=== PATIENT | female | born 1930 | race Caucasian/White ===

== ENCOUNTER 2020-04-25 12:23 | Inpatient (IN) | payer OTHER, BC ==
[2020-04-25 15:16] LABS: EPI CELLS >36 /uL (0-25.1); HYALINE CASTS 14 /uL (0-3.1); URINE APPEARANCE CLOUDY; URINE BACTERIA 20 /uL (0-1359); URINE BILIRUBIN NEGATIVE (NEGATIVE); URINE COLOR YELLOW; URINE GLUCOSE (UA) NEGATIVE (NEGATIVE); URINE KETONE NEGATIVE (NEGATIVE); URINE LEUK ESTERASE 1+ (NEGATIVE); URINE NITRITE NEGATIVE (NEGATIVE); URINE PROTEIN 1+ (NEGATIVE); URINE RBC 8 /uL (0-23.9); URINE UROBILINOGEN 0.2 mg/dL (0.2-1.0); URINE WBC 17 /uL (0-25.8)
[2020-04-25 15:27] LABS: MCHC 30.8 g/dl (32.0-36.0); MEAN CELL VOLUME 61.8 fl (80-96); MEAN PLT VOLUME 9.2 fl (7.5-11.1); PLATELET COUNT 190 K/MM3 (134-434); WHITE BLOOD COUNT 7.1 K/mm3 (4.0-10.0)
[2020-04-25] MEDS ORDERED: SODIUM CHLORIDE 500 ML IV STA (15:29)
[2020-04-25 15:48] LABS: CHLORIDE 106 mmol/L (98-107); POTASSIUM 4.7 mmol/L (3.5-5.1); SODIUM 136 mmol/L (136-145)
[2020-04-25 15:51] LABS: ALBUMIN 2.8 g/dl (3.4-5.0); ANION GAP 7 MMOL/L (8-16); CO2 24 mmol/L (21-32); GLUCOSE,RANDOM 90 mg/dL (74-106)
[2020-04-25 15:54] LABS: SGOT/AST 32 U/L (15-37); SGPT/ALT 18 U/L (13-61)
[2020-04-25 15:56] LABS: BILIRUBIN,TOTAL 0.5 mg/dL (0.2-1); TOT PROT 6.6 g/dl (6.4-8.2)
[2020-04-25 15:57] LABS: ALK PHOS 104 U/L (45-117)
[2020-04-25 16:06] LABS: BLOOD UREA NITROGEN 28.3 mg/dL (7-18); CREATININE 1.1 mg/dL (0.55-1.3)
[2020-04-25] MEDS ORDERED: DIGOXIN 0.5 MG/2 ML AMPUL IVPUSH ONE (16:17)
[2020-04-25] MEDS ORDERED: DIGOXIN 0.5 MG/2 ML AMPUL ONE (16:36)
[2020-04-25] MEDS ORDERED: METOPROLOL TARTRATE 5 MG/5 ML VIAL IVPUSH ONE (20:44)
[2020-04-25] MEDS ORDERED: METOPROLOL TARTRATE 5 MG/5 ML VIAL ONE (21:09)
[2020-04-25 21:13] LABS: RETICULOCYTES 1.68 % (0.5-1.5)
[2020-04-25] MEDS ORDERED: CEFTRIAXONE 1 GM/50 ML BAG ONE (21:25)
[2020-04-25 21:26] LABS: IRON SERUM 13 ug/dL (50-175); TOTAL IRON BINDING CAPACITY 411 ug/dL (250-450)
[2020-04-25] MEDS: CEFTRIAXONE 1 GM in DEXTROSE 5%-WATER - 50 ML IVPB SCH (21:31)
[2020-04-25 22:06] LABS: HEMATOCRIT 23.8 % (32.4-45.2); HEMOGLOBIN 7.4 GM/dL (10.7-15.3); MCHC 31.1 g/dl (32.0-36.0); MEAN PLT VOLUME 9.1 fl (7.5-11.1); PLATELET COUNT 181 K/MM3 (134-434); RBC 3.22 M/mm3 (3.60-5.2); WHITE BLOOD COUNT 7.6 K/mm3 (4.0-10.0)
[2020-04-25] MEDS: D5-1/2NS+10 MEQ KCL - 10 MEQ/1,000 ML INFUS.BAG IV SCH (23:34)
[2020-04-26 08:29] LABS: INR 1.09 (0.83-1.09); PROTHROMBIN TIME (PATIENT) 13.2 SEC (9.7-13.0)
[2020-04-26 08:35] LABS: POTASSIUM 4.1 mmol/L (3.5-5.1)
[2020-04-26 08:44] LABS: CALCIUM 8.2 mg/dL (8.5-10.1)
[2020-04-26 08:45] LABS: ALBUMIN 2.7 g/dl (3.4-5.0); BLOOD UREA NITROGEN 28.9 mg/dL (7-18); MAGNESIUM 2.4 mg/dL (1.8-2.4)
[2020-04-26 08:48] LABS: PHOSPHOROUS 3.5 mg/dL (2.5-4.9)
[2020-04-26 08:49] LABS: BILIRUBIN,TOTAL 1.8 mg/dL (0.2-1); TOT PROT 6.4 g/dl (6.4-8.2)
[2020-04-26] MEDS ORDERED: cefTRIAXone SODIUM 1 GM VIAL ONE (08:53)
[2020-04-26] MEDS ORDERED: DEXTROSE 5%-WATER - 50 ML IVPB ONE (08:53)
[2020-04-26 09:41] LABS: HEMATOCRIT 20.5 % (32.4-45.2); MCH 23.3 pg (25.7-33.7); MCHC 33.5 g/dl (32.0-36.0); MEAN CELL VOLUME 69.7 fl (80-96); MEAN PLT VOLUME 9.3 fl (7.5-11.1); PLATELET COUNT 178 K/MM3 (134-434); RBC 2.94 M/mm3 (3.60-5.2); RDW 25.6 % (11.6-15.6); WHITE BLOOD COUNT 7.7 K/mm3 (4.0-10.0)
[2020-04-26] MEDS: CEFTRIAXONE 1 GM in DEXTROSE 5%-WATER - 50 ML IVPB SCH (10:20)
[2020-04-26 11:01] LABS: ANISOCYTOSIS 3+; MACROCYTOSIS 0; PLATELET ESTIMATE NORMAL; TARGET CELLS 2+
[2020-04-26 11:06] LABS: HEMOGLOBIN 6.9 GM/dL (10.7-15.3)
[2020-04-26] MEDS ORDERED: METOPROLOL TARTRATE 25 MG TABLET (FP) PO ONE (17:49)
[2020-04-26] MEDS: DOCUSATE SODIUM 100 MG CAPSULE (FP) PO SCH (21:35)
[2020-04-26] MEDS: FERROUS SO4 325 MG TABLET (FP) PO SCH (21:35)
[2020-04-26] MEDS ORDERED: METOPROLOL TARTRATE 25 MG TABLET (FP) PO SCH (22:00)
[2020-04-26 22:13] LABS: HEMOGLOBIN 8.2 GM/dL (10.7-15.3); MCH 24.2 pg (25.7-33.7); MCHC 32.9 g/dl (32.0-36.0); MEAN CELL VOLUME 73.5 fl (80-96); MEAN PLT VOLUME 9.1 fl (7.5-11.1); PLATELET COUNT 179 K/MM3 (134-434); WHITE BLOOD COUNT 8.2 K/mm3 (4.0-10.0)
[2020-04-27] MEDS: D5-1/2NS+10 MEQ KCL - 10 MEQ/1,000 ML INFUS.BAG IV SCH ×2 (00:24→21:22)
[2020-04-27] MEDS: DOCUSATE SODIUM 100 MG CAPSULE (FP) PO SCH ×3 (05:15→21:22)
[2020-04-27] MEDS ORDERED: METOPROLOL TARTRATE 25 MG TABLET (FP) PO ONE (06:28)
[2020-04-27] MEDS ORDERED: D5-1/2NS+10 MEQ KCL - 10 MEQ/1,000 ML INFUS.BAG IV SCH (08:12)
[2020-04-27 09:50] LABS: HEMATOCRIT 25.5 % (32.4-45.2); HEMOGLOBIN 8.4 GM/dL (10.7-15.3); MCHC 32.9 g/dl (32.0-36.0); MEAN PLT VOLUME 8.8 fl (7.5-11.1); PLATELET COUNT 179 K/MM3 (134-434); RBC 3.49 M/mm3 (3.60-5.2); RDW 25.9 % (11.6-15.6)
[2020-04-27] MEDS ORDERED: cefTRIAXone SODIUM 1 GM VIAL ONE (09:53)
[2020-04-27] MEDS ORDERED: DEXTROSE 5%-WATER - 50 ML IVPB ONE (09:53)
[2020-04-27 09:58] LABS: POTASSIUM 3.8 mmol/L (3.5-5.1)
[2020-04-27] MEDS ORDERED: CHOLECALCIFEROL (VIT D3) 1,000 UNIT (25 MCG) TABLET PO SCH (10:00)
[2020-04-27] MEDS ORDERED: CEFTRIAXONE 1 GM in DEXTROSE 5%-WATER - 50 ML IVPB SCH (10:00)
[2020-04-27] MEDS ORDERED: METOPROLOL TARTRATE 25 MG TABLET (FP) PO SCH (10:00)
[2020-04-27 10:01] LABS: ALBUMIN 2.6 g/dl (3.4-5.0); BLOOD UREA NITROGEN 27.6 mg/dL (7-18); CALCIUM 8.2 mg/dL (8.5-10.1); MAGNESIUM 2.4 mg/dL (1.8-2.4)
[2020-04-27] MEDS: FERROUS SO4 325 MG TABLET (FP) PO SCH ×2 (10:02→21:22)
[2020-04-27 10:04] LABS: CREATININE 0.9 mg/dL (0.55-1.3)
[2020-04-27 10:05] LABS: PHOSPHOROUS 2.7 mg/dL (2.5-4.9)
[2020-04-27 10:06] LABS: BILIRUBIN,TOTAL 1.9 mg/dL (0.2-1); TOT PROT 6.6 g/dl (6.4-8.2)
[2020-04-27 12:30] LABS: ANISOCYTOSIS 1+; MACROCYTOSIS 0; PLATELET ESTIMATE NORMAL
[2020-04-27 12:55] VITALS: BMI 17.3
[2020-04-27] MEDS ORDERED: LISINOPRIL 5 MG TABLET PO ONE (13:31)
[2020-04-27] MEDS ORDERED: PROPOFOL 20 ML ONE (16:43)
[2020-04-27] MEDS ORDERED: SUCCINYLCHOLINE CHLORIDE 200 MG/10 ML SYRINGE ONE (16:43)
[2020-04-27] MEDS ORDERED: DESFLURANE GAS 240 ML BOTTLE IH ONE (16:45)
[2020-04-27] MEDS ORDERED: TRANEXAMIC ACID 1000 MG/10 ML VIAL ONE (17:36)
[2020-04-27] MEDS ORDERED: ONDANSETRON 4 MG/2 ML VIAL IVPUSH PRN ×2 (17:40→18:48)
[2020-04-27] MEDS ORDERED: PROMETHAZINE HCL 25 MG/1 ML VIAL IVPUSH PRN ×2 (17:40→18:48)
[2020-04-27] MEDS ORDERED: oxyCODONE HCL 5 MG TABLET PO PRN ×4 (17:40→18:48)
[2020-04-27] MEDS ORDERED: ACETAMINOPHEN 325 MG TABLET (FP) PO PRN (18:29)
[2020-04-27] MEDS ORDERED: morphine SULFATE 4 MG/ML VIAL IM PRN ×2 (18:29→18:48)
[2020-04-27 19:38] LABS: HEMATOCRIT 23.9 % (32.4-45.2); HEMOGLOBIN 7.6 GM/dL (10.7-15.3); MCH 23.8 pg (25.7-33.7); MCHC 31.9 g/dl (32.0-36.0); MEAN CELL VOLUME 74.5 fl (80-96); MEAN PLT VOLUME 9.1 fl (7.5-11.1); PLATELET COUNT 161 K/MM3 (134-434); RBC 3.21 M/mm3 (3.60-5.2); WHITE BLOOD COUNT 6.7 K/mm3 (4.0-10.0)
[2020-04-28] MEDS ORDERED: ceFAZolin SODIUM 1 GM VIAL ONE ×2 (01:05→09:39)
[2020-04-28] MEDS ORDERED: DEXTROSE 5%-WATER - 50 ML IVPB ONE ×2 (01:05→09:39)
[2020-04-28] MEDS: CEFAZOLIN 1 GM in DEXTROSE 5%-WATER - 1 GM/50 ML IVPB IVPB SCH ×2 (02:00→10:02)
[2020-04-28] MEDS ORDERED: CEFAZOLIN 1 GM in DEXTROSE 5%-WATER - 1 GM/50 ML IVPB IVPB SCH (02:00)
[2020-04-28] MEDS: DOCUSATE SODIUM 100 MG CAPSULE (FP) PO SCH ×3 (05:04→21:13)
[2020-04-28 08:28] LABS: POTASSIUM 3.6 mmol/L (3.5-5.1)
[2020-04-28 08:47] LABS: HEMATOCRIT 24.9 % (32.4-45.2); HEMOGLOBIN 8.2 GM/dL (10.7-15.3); MCH 24.1 pg (25.7-33.7); MCHC 32.9 g/dl (32.0-36.0); MEAN CELL VOLUME 73.4 fl (80-96); MEAN PLT VOLUME 9.1 fl (7.5-11.1); PLATELET COUNT 191 K/MM3 (134-434); RDW 27.1 % (11.6-15.6)
[2020-04-28 09:08] LABS: CALCIUM 8.2 mg/dL (8.5-10.1)
[2020-04-28 09:09] LABS: ALBUMIN 2.4 g/dl (3.4-5.0); BLOOD UREA NITROGEN 22.7 mg/dL (7-18); CREATININE 0.8 mg/dL (0.55-1.3)
[2020-04-28 09:11] LABS: TOT PROT 5.8 g/dl (6.4-8.2)
[2020-04-28] MEDS ORDERED: METOPROLOL TARTRATE 25 MG TABLET (FP) PO SCH ×2 (10:00)
[2020-04-28] MEDS ORDERED: LISINOPRIL 5 MG TABLET PO SCH (10:00)
[2020-04-28] MEDS: CHOLECALCIFEROL (VIT D3) 1,000 UNIT (25 MCG) TABLET PO SCH (10:03)
[2020-04-28] MEDS: FERROUS SO4 325 MG TABLET (FP) PO SCH ×3 (10:03→21:13)
[2020-04-28] MEDS: LISINOPRIL 5 MG TABLET PO SCH (10:03)
[2020-04-28] MEDS: ACETAMINOPHEN 325 MG TABLET (FP) PO PRN (10:04)
[2020-04-28] MEDS ORDERED: ENOXAPARIN NA (PORCINE) 40 MG/0.4 ML DISP.SYRIN SQ SCH (16:00)
[2020-04-28] MEDS: ENOXAPARIN NA (PORCINE) 40 MG/0.4 ML DISP.SYRIN SQ SCH (16:57)
[2020-04-28] MEDS: D5-1/2NS+10 MEQ KCL - 10 MEQ/1,000 ML INFUS.BAG IV SCH ×2 (16:59→20:05)
[2020-04-29] MEDS: DOCUSATE SODIUM 100 MG CAPSULE (FP) PO SCH ×3 (05:38→21:01)
[2020-04-29 08:38] LABS: HEMATOCRIT 22.7 % (32.4-45.2); HEMOGLOBIN 7.4 GM/dL (10.7-15.3); MCH 24.5 pg (25.7-33.7); MCHC 32.8 g/dl (32.0-36.0); MEAN CELL VOLUME 74.7 fl (80-96); MEAN PLT VOLUME 8.7 fl (7.5-11.1); PLATELET COUNT 201 K/MM3 (134-434); RBC 3.04 M/mm3 (3.60-5.2); RDW 27.9 % (11.6-15.6)
[2020-04-29 08:44] LABS: CALCIUM 7.8 mg/dL (8.5-10.1); MAGNESIUM 1.8 mg/dL (1.8-2.4)
[2020-04-29 08:45] LABS: BLOOD UREA NITROGEN 32.1 mg/dL (7-18)
[2020-04-29 08:48] LABS: CREATININE 1.2 mg/dL (0.55-1.3); PHOSPHOROUS 3.6 mg/dL (2.5-4.9)
[2020-04-29] MEDS ORDERED: PT OWN MED DRAWER 7, Y5N ONE (09:30)
[2020-04-29] MEDS: FERROUS SO4 325 MG TABLET (FP) PO SCH ×2 (09:34→21:01)
[2020-04-29] MEDS: METOPROLOL TARTRATE 25 MG TABLET (FP) PO SCH ×2 (09:34→21:00)
[2020-04-29] MEDS: LISINOPRIL 5 MG TABLET PO SCH (09:35)
[2020-04-29] MEDS: CHOLECALCIFEROL (VIT D3) 1,000 UNIT (25 MCG) TABLET PO SCH (09:36)
[2020-04-29] MEDS: ENOXAPARIN NA (PORCINE) 40 MG/0.4 ML DISP.SYRIN SQ SCH (09:36)
[2020-04-29] MEDS: D5-1/2NS+10 MEQ KCL - 10 MEQ/1,000 ML INFUS.BAG IV SCH ×2 (19:28→23:32)
[2020-04-29 23:33] LABS: HEMATOCRIT 25.6 % (32.4-45.2); HEMOGLOBIN 8.1 GM/dL (10.7-15.3); MCH 24.8 pg (25.7-33.7); MCHC 31.7 g/dl (32.0-36.0); MEAN CELL VOLUME 78.3 fl (80-96); MEAN PLT VOLUME 8.7 fl (7.5-11.1); PLATELET COUNT 199 K/MM3 (134-434); RBC 3.27 M/mm3 (3.60-5.2); RDW 28.3 % (11.6-15.6); WHITE BLOOD COUNT 8.1 K/mm3 (4.0-10.0)
[2020-04-30] MEDS: DOCUSATE SODIUM 100 MG CAPSULE (FP) PO SCH ×3 (05:24→22:27)
[2020-04-30 08:06] LABS: HEMATOCRIT 26.7 % (32.4-45.2); HEMOGLOBIN 8.4 GM/dL (10.7-15.3); MCH 24.7 pg (25.7-33.7); MCHC 31.6 g/dl (32.0-36.0); MEAN CELL VOLUME 78.3 fl (80-96); MEAN PLT VOLUME 8.6 fl (7.5-11.1); PLATELET COUNT 205 K/MM3 (134-434); RBC 3.41 M/mm3 (3.60-5.2); RDW 28.3 % (11.6-15.6)
[2020-04-30 08:39] LABS: POTASSIUM 4.3 mmol/L (3.5-5.1)
[2020-04-30 08:44] LABS: ALBUMIN 2.1 g/dl (3.4-5.0); BLOOD UREA NITROGEN 30.4 mg/dL (7-18); CALCIUM 7.6 mg/dL (8.5-10.1); MAGNESIUM 1.9 mg/dL (1.8-2.4)
[2020-04-30 08:47] LABS: PHOSPHOROUS 3.1 mg/dL (2.5-4.9)
[2020-04-30 08:48] LABS: TOT PROT 5.4 g/dl (6.4-8.2)
[2020-04-30] MEDS ORDERED: PT OWN MED DRAWER 7, Y5N ONE (09:34)
[2020-04-30] MEDS: METOPROLOL TARTRATE 25 MG TABLET (FP) PO SCH ×2 (09:55→22:27)
[2020-04-30] MEDS: FERROUS SO4 325 MG TABLET (FP) PO SCH ×2 (09:55→22:27)
[2020-04-30] MEDS: LISINOPRIL 5 MG TABLET PO SCH (09:56)
[2020-04-30] MEDS: CHOLECALCIFEROL (VIT D3) 1,000 UNIT (25 MCG) TABLET PO SCH (09:56)
[2020-04-30] MEDS: D5-1/2NS+10 MEQ KCL - 10 MEQ/1,000 ML INFUS.BAG IV SCH (19:45)
[2020-05-01] MEDS: DOCUSATE SODIUM 100 MG CAPSULE (FP) PO SCH ×3 (06:22→21:58)
[2020-05-01] MEDS: ENOXAPARIN NA (PORCINE) 40 MG/0.4 ML DISP.SYRIN SQ SCH (10:13)
[2020-05-01] MEDS: CHOLECALCIFEROL (VIT D3) 1,000 UNIT (25 MCG) TABLET PO SCH (10:14)
[2020-05-01] MEDS: LISINOPRIL 5 MG TABLET PO SCH (10:14)
[2020-05-01] MEDS: FERROUS SO4 325 MG TABLET (FP) PO SCH ×2 (10:14→21:58)
[2020-05-01] MEDS: METOPROLOL TARTRATE 25 MG TABLET (FP) PO SCH ×2 (10:14→21:58)
[2020-05-01 13:37] LABS: HEMOGLOBIN 9.1 GM/dL (10.7-15.3); MCH 25.1 pg (25.7-33.7); MCHC 32.3 g/dl (32.0-36.0); MEAN CELL VOLUME 77.7 fl (80-96); MEAN PLT VOLUME 8.1 fl (7.5-11.1); PLATELET COUNT 244 K/MM3 (134-434); RBC 3.61 M/mm3 (3.60-5.2); RDW 29.4 % (11.6-15.6); WHITE BLOOD COUNT 11.8 K/mm3 (4.0-10.0)
[2020-05-01 13:53] LABS: POTASSIUM 4.3 mmol/L (3.5-5.1)
[2020-05-01 13:55] LABS: CALCIUM 7.9 mg/dL (8.5-10.1)
[2020-05-01 13:56] LABS: BLOOD UREA NITROGEN 25.8 mg/dL (7-18); MAGNESIUM 1.9 mg/dL (1.8-2.4)
[2020-05-01 13:59] LABS: CREATININE 0.8 mg/dL (0.55-1.3)
[2020-05-01 14:00] LABS: TOT PROT 5.6 g/dl (6.4-8.2)
[2020-05-02] MEDS: DOCUSATE SODIUM 100 MG CAPSULE (FP) PO SCH ×3 (06:32→22:12)
[2020-05-02 08:21] LABS: HEMATOCRIT 24.8 % (32.4-45.2); HEMOGLOBIN 8.1 GM/dL (10.7-15.3); MCH 25.6 pg (25.7-33.7); MCHC 32.6 g/dl (32.0-36.0); MEAN CELL VOLUME 78.5 fl (80-96); MEAN PLT VOLUME 8.8 fl (7.5-11.1); PLATELET COUNT 237 K/MM3 (134-434); RBC 3.16 M/mm3 (3.60-5.2); RDW 29.2 % (11.6-15.6); WHITE BLOOD COUNT 9.3 K/mm3 (4.0-10.0)
[2020-05-02 08:37] LABS: POTASSIUM 4.3 mmol/L (3.5-5.1)
[2020-05-02 08:43] LABS: CALCIUM 7.8 mg/dL (8.5-10.1)
[2020-05-02 08:44] LABS: BLOOD UREA NITROGEN 26.7 mg/dL (7-18)
[2020-05-02 08:47] LABS: CREATININE 0.8 mg/dL (0.55-1.3)
[2020-05-02 08:48] LABS: PHOSPHOROUS 3.5 mg/dL (2.5-4.9)
[2020-05-02] MEDS: ENOXAPARIN NA (PORCINE) 40 MG/0.4 ML DISP.SYRIN SQ SCH (09:15)
[2020-05-02] MEDS: METOPROLOL TARTRATE 25 MG TABLET (FP) PO SCH ×2 (09:15→22:12)
[2020-05-02] MEDS: CHOLECALCIFEROL (VIT D3) 1,000 UNIT (25 MCG) TABLET PO SCH (09:16)
[2020-05-02] MEDS: FERROUS SO4 325 MG TABLET (FP) PO SCH ×2 (09:16→22:12)
[2020-05-02] MEDS: PANTOPRAZOLE 40 MG TABLET PO SCH (09:16)
[2020-05-02] MEDS: LISINOPRIL 5 MG TABLET PO SCH (09:16)
[2020-05-02] MEDS ORDERED: FUROSEMIDE 40 MG/4 ML INJECTABLE VIAL IVPUSH SCH (11:12)
[2020-05-02] MEDS ORDERED: FUROSEMIDE 40 MG/4 ML INJECTABLE VIAL IVPUSH ONE (11:12)
[2020-05-02] MEDS: ACETAMINOPHEN 325 MG TABLET (FP) PO PRN (14:22)
[2020-05-03] MEDS: DOCUSATE SODIUM 100 MG CAPSULE (FP) PO SCH ×2 (05:59→14:05)
[2020-05-03] MEDS: CHOLECALCIFEROL (VIT D3) 1,000 UNIT (25 MCG) TABLET PO SCH (09:19)
[2020-05-03] MEDS: METOPROLOL TARTRATE 25 MG TABLET (FP) PO SCH (09:19)
[2020-05-03] MEDS: PANTOPRAZOLE 40 MG TABLET PO SCH (09:19)
[2020-05-03] MEDS: LISINOPRIL 5 MG TABLET PO SCH (09:19)
[2020-05-03] MEDS: FERROUS SO4 325 MG TABLET (FP) PO SCH (09:19)
[2020-05-03] MEDS: ENOXAPARIN NA (PORCINE) 40 MG/0.4 ML DISP.SYRIN SQ SCH (09:20)
[2020-05-03 09:40] LABS: BASO % 0.7 % (0-2.0); EOS % 1.5 % (0-4.5); HEMATOCRIT 30.2 % (32.4-45.2); HEMOGLOBIN 9.9 GM/dL (10.7-15.3); LYMPH % 13.7 % (8-40); MCH 26.1 pg (25.7-33.7); MCHC 32.7 g/dl (32.0-36.0); MEAN CELL VOLUME 79.8 fl (80-96); MEAN PLT VOLUME 8.4 fl (7.5-11.1); MONO % 7.6 % (3.8-10.2); NEUT % 76.5 % (42.8-82.8); PLATELET COUNT 256 K/MM3 (134-434); RBC 3.78 M/mm3 (3.60-5.2); RDW 26.6 % (11.6-15.6); WHITE BLOOD COUNT 8.2 K/mm3 (4.0-10.0)
[2020-05-03 11:50] LABS: ANISOCYTOSIS 1+; MACROCYTOSIS 0; PLATELET ESTIMATE NORMAL
[2020-05-03 15:16] VITALS: BP 109/56; PULSE 59; TEMP 97.6
== END 2020-05-03 18:13 | DRG 480 ==
LOC: JER 12:23 → JERBED 18:41 → J8W 04-26 00:53
PROVIDERS: ADMIT Hospitalist; ATTEND Internal Medicine
PROC: 30233N1 Transfusion of Nonautologous Red Blood Cells into Peripheral Vein, Percutaneous Approach (ICD-10-PCS; 2020-04-25)
PROC: 0QS706Z Reposition Left Upper Femur with Intramedullary Internal Fixation Device, Open Approach (ICD-10-PCS; principal; 2020-04-27 16:30)
DX: S72.142A Displaced intertrochanteric fracture of left femur, initial encounter for closed fracture (principal); E43 Unspecified severe protein-calorie malnutrition; N39.0 Urinary tract infection, site not specified; I24.8 Other forms of acute ischemic heart disease; I10 Essential (primary) hypertension; E78.5 Hyperlipidemia, unspecified; F03.90 Unspecified dementia, unspecified severity, without behavioral disturbance, psychotic disturbance, mood disturbance, and anxiety; E88.09 Other disorders of plasma-protein metabolism, not elsewhere classified; D50.9 Iron deficiency anemia, unspecified; I48.91 Unspecified atrial fibrillation; W19.XXXA Unspecified fall, initial encounter; Y93.9 Activity, unspecified; Y92.89 Other specified places as the place of occurrence of the external cause
CPT/HCPCS: 36415; 36430; 70450-TC; 71045-TC-FY; 72070-TC-FY; 72100-TC-FY; 72125-TC; 72170-TC-FY; 73060-TC-LT-FY; 73070-TC-LT-FY; 73523-TC-FY; 76000-TC-FY; 80048; 80053; 81003; 82272; 82550; 82553; 82728; 83010; 83540; 83550; 83615; 83735; 84100; 84484; 85025; 85027; 85045; 85610; 85730; 86850; 86900; 86901; 86922; 87086; 93005; 93010; 93306-TC; 94760; 97116-GP; 97161-GP; 99285-25; C9803; P9058; U0003